=== PATIENT | male | born 1975 | race Caucasian/White ===

== ENCOUNTER 2017-07-13 14:17 | Emergency (ER) | payer MEDICAID, SELFPAY ==
[2017-07-13 14:18] VITALS: BP 159/93; PULSE 102; RESP 14; TEMP 36.4; O2SAT 99; BMI 40.9
[2017-07-13 14:52] LABS: Bedside Glucose 148 mg/dL (70-110)
--- NOTE | 2017-07-13 14:52 | ED.VISSUMM ---
- ER Visit Summary Date of Service: 07/13/17 Chief Complaint: Rash anterior left and anterior right leg History of Present Illness: The patient is a [address] diabetes and hypertension presents because of rash anterior left and right leg. Onset yesterday. He has been scratching his legs. He denies fever, chills or night sweats. He does not check his blood sugars on a regular basis. His last A1c was 7.1. He denies any polyuria, polydipsia or polyphagia. He denies blurred vision. He has no other complaints please read written note. Physical Examination: Unremarkable blood pressure 159/93. Temperature is 97.5. HEENT exam is unremarkable. Insert cardiac pulmonary exam patient has distal pulses i.e. DP and PT which are palpable bilaterally. There is areas of excoriation with mild erythema anterior distal right leg. There is excoriation anterior left leg; however, there is erythema, warmth, and induration. There is no lymphangitis nor is there any popliteal or inguinal lymphadenopathy. Test Results: B GT is 148 Emergency Department Course and Treatment: Blood sugar and treat with doxycycline since he may be managed as an outpatient. Treatment Plan: Option for doxycycline and [facility] at [facility] Disposition: Discharged to home with appropriate home-going directions and prescription for doxycycline Impression: Cellulitis anterior left leg Areas of excoriation with erythema anterior right leg Hyperglycemia and type II diabetic This note was generated with [employer] dictation software. It may contain incorrect words, spelling, and punctuation that were not noted in review of the chart prior to signing ED Disposition - Plan for ED Patient: Disposition: Home or Assisted Living Chief Complaint: Cellulitis Instructions: Discharge Instructions for Cellulitis Prescriptions: Doxycycline [Vibramycin] 100 mg PO BID #14 cap [facility] 2 Days for wound check
--- NOTE | 2017-07-13 14:57 | ED.DCSUM_ITS ---
- ER Visit Summary Date of Service: 07/13/17 Chief Complaint: Rash anterior left and anterior right leg History of Present Illness: The patient is a [address] diabetes and hypertension presents because of rash anterior left and right leg. Onset yesterday. He has been scratching his legs. He denies fever, chills or night sweats. He does not check his blood sugars on a regular basis. His last A1c was 7.1. He denies any polyuria, polydipsia or polyphagia. He denies blurred vision. He has no other complaints please read written note. Physical Examination: Unremarkable blood pressure 159/93. Temperature is 97.5. HEENT exam is unremarkable. Insert cardiac pulmonary exam patient has distal pulses i.e. DP and PT which are palpable bilaterally. There is areas of excoriation with mild erythema anterior distal right leg. There is excoriation anterior left leg; however, there is erythema, warmth, and induration. There is no lymphangitis nor is there any popliteal or inguinal lymphadenopathy. Test Results: B GT is 148 Emergency Department Course and Treatment: Blood sugar and treat with doxycycline since he may be managed as an outpatient. Treatment Plan: [facility] for [facility]xycycline [facility] Disposition: Discharged to home with appropriate home-going directions and prescription for doxycycline Impression: Cellulitis anterior left leg Areas of excoriation with erythema anterior right leg Hyperglycemia and type II diabetic This note was generated with [employer] dictation software. It may contain incorrect words, spelling, and punctuation that were not noted in review of the chart prior to signing ED Disposition - Plan for ED Patient: Disposition: Home or Assisted Living Chief Complaint: Cellulitis Instructions: Discharge Instructions for Cellulitis Prescriptions: Doxycycline [Vibramycin] 100 mg PO BID #14 cap [facility] - 2 Days for wound check
[2017-07-13] MEDS: Doxycycline 100 MG CAPSULE PO (15:07)
[2017-07-13 15:08] VITALS: BP 121/89
== END 2017-07-13 15:08 | disposition home or self-care (01) ==
PROVIDERS: Emergency Provider Emergency Medicine
DX: S80.812A Abrasion, left lower leg, initial encounter (principal); L03.116 Cellulitis of left lower limb; S80.811A Abrasion, right lower leg, initial encounter; X58.XXXA Exposure to other specified factors, initial encounter; Y93.9 Activity, unspecified; Y92.9 Unspecified place or not applicable; E11.65 Type 2 diabetes mellitus with hyperglycemia; I10 Essential (primary) hypertension; E66.9 Obesity, unspecified; Z79.82 Long term (current) use of aspirin; Z79.84 Long term (current) use of oral hypoglycemic drugs; Z79.899 Other long term (current) drug therapy; Z72.0 Tobacco use
CPT/HCPCS: 82962; 99282

== ENCOUNTER → 2018-08-31 10:28 | Outpatient (CLI) | payer MEDICAID, SELFPAY ==
--- NOTE | 2018-08-31 10:50 | RAD_ITS ---
STUDY: X-RAY - CERVICAL SPINE REASON FOR EXAM: Male, 42 years old. Neck pain and headache TECHNIQUE: 7 view(s) of the cervical spine were obtained. COMPARISON: None FINDINGS: Normal anterior atlantoaxial articulation. Normal odontoid process. Normal cervical lordosis. Normal vertebral bodies and endplates. Mild disc space narrowing. There is multi-level osseous foraminal stenosis. The soft tissue structures are unremarkable. No evidence of instability on the flexion or extension views. RAD/Cerv Spine 4 or 5 Views IMPRESSION: Degenerative changes, no acute findings Electronically Signed: Irving Worley MD at 12:22 EDT , Service support ,
== END ==
DX: M54.2 Cervicalgia (principal)
CPT/HCPCS: 72050

== ENCOUNTER 2020-05-13 15:21 | Emergency (ER) | payer MEDICAID, SELFPAY ==
[2020-05-13 15:22] VITALS: BP 121/80; PULSE 78; RESP 16; TEMP 36.5; O2SAT 99; BMI 34.8
--- NOTE | 2020-05-13 15:43 | MRI_ITS ---
STUDY: MRI LUMBAR SPINE WITHOUT CONTRAST REASON FOR EXAM: Male, 44 years old. pain low back and left leg, numbness TECHNIQUE: Standardized fat and water weighted pulse sequences were obtained in the sagittal and axial planes. COMPARISON: None FINDINGS: T12-L1: Normal endplates. Normal disc height, hydration and morphology. Normal bilateral facet joints. Normal central canal and bilateral lateral recesses. Normal bilateral intervertebral neural foramina. Normal lumbar lordosis. There is no substantial scoliosis. Normal conus medullaris that terminates at the L1 level. L1-2: Normal endplates. Normal disc height, hydration and morphology. Normal bilateral facet joints. Normal central canal and bilateral lateral recesses. Normal bilateral intervertebral neural foramina. L2-3: Normal endplates. Normal disc height, hydration and morphology. Hypertrophic bilateral facet joints. Normal central canal and bilateral lateral recesses. Normal bilateral intervertebral neural foramina. L3-4: Normal endplates. Normal disc height, hydration and morphology. Hypertrophic bilateral facet joints. Normal central canal and bilateral lateral recesses. Normal bilateral intervertebral neural foramina. L4-5: Normal endplates. Normal disc height, hydration and morphology. Fluid-filled hypertrophic bilateral facet joints. Normal central canal and bilateral lateral recesses. Moderate narrowing bilateral intervertebral neural foramina. L5-S1: Mild annular bulge.. Normal disc height, hydration and morphology. Normal bilateral facet joints. Normal central canal and bilateral lateral recesses. Moderate narrowing bilateral intervertebral neural foramina. Normal visualized sacral ala. Normal visualized paraspinous soft tissue structures. MRI/Spine Lumbar (Routine) IMPRESSION: Moderate narrowing of the inferior neural foramina bilaterally at L4-5 and L5-S1 as above Electronically Signed: Reji Hanson MD at 18:58 EST , Service support ,
--- NOTE | 2020-05-13 15:44 | ED.VIS.GEN ---
History of Present Illness Chief Complaint: Back Informant: Patient Onset: Today Current Severity: Moderate Maximum Severity: Moderate Narrative: Patient presents with back pain and left leg weakness and numbness. He reports a history of back problems and states he has broken his back and neck 3 times each. Yesterday he was trying to help load a car onto a trailer. He states when he went to bed last evening he had no pain. He got up at 3:00 in the morning to go the bathroom and had some pain in his low back when doing so. When he woke up later this morning he states he felt like his left leg was completely numb and he had difficulty moving it. He states his been laying in bed all day because of this. - Past Medical History (1) H/O heart artery stent Status: Chronic (2) Coronary artery disease Status: Chronic (3) Diabetes Status: Chronic (4) Fibromyalgia Status: Chronic Past Medical History - Allergies and Home Meds Allergies/Adverse Reactions: Allergies No Known Allergies Allergy (Verified 05/13/20 15:22) [facility] - Prior records reviewed: Yes Smoking Status: Current every day smoker Review of Systems General: Denies: Chills, Fever Eyes: Denies: Visual changes - bilaterally ENT: Denies: Bilateral ear pain Cardiovascular: Denies: Chest pain Respiratory: Denies: Dyspnea, Cough Gastrointestinal: Denies: Abdominal pain, Nausea, Vomiting, Diarrhea Musculoskeletal: Reports: Back pain Skin: Denies: Rash Neurological: Reports: Weakness, Numbness Hematologic: Denies: Easy bruising, Easy bleeding Allergy: Denies: Uticaria Physical Exam Vital Signs/Narrative: Vital Signs Temp Pulse Resp BP Pulse Ox 05/13/20 15:22 97.7 F L 78 16 121/80 H 99 Inital Vital Signs reviewed: Yes General: Well nourished, Well developed Head: Normocephalic ENT: Moist mucous membranes Neck: Supple Cardiovascular: Regular rate, Regular rhythm Respiratory: No distress, CTA bilaterally Abdomen: Soft, Nontender Extremities: - - 1+ bilateral patellar reflexes. Patient reports decreased sensation to light touch throughout the left leg. He is able to lift his heel up off the bed. Neurological: Alert, Oriented x3 Psychological: Normal affect Diagnostic/Tx/Re-eval Impressions Lumbar Spine MRI 05/13/20 15:43 IMPRESSION: Moderate narrowing of the inferior neural foramina bilaterally at L4-5 and L5-S1 as above Electronically Signed: Reji Hanson MD at 18:58 EST , Service support , 05/13/20 15:43 MRI Lumbar [Spine Lumbar (Routine)] [MRI] Stat Laboratory Results 05/13/20 05/13/20 15:10 15:10 WBC 12.8 H RBC 5.49 Hgb 16.6 H Hct 51.1 MCV 93.1 MCH 30.2 MCHC 32.5 RDW Std Deviation 46.5 H RDW Coeff of Rita 13.8 Plt Count 292 MPV 10.2 Immature Gran % (Auto) 1.000 H Neut % (Auto) 71.2 H Lymph % (Auto) 19.0 [place] % (Auto) 6.3 Eos % (Auto) 2.0 Baso % (Auto) 0.5 Absolute Neuts (auto) 9.1 H Absolute Lymphs (auto) 2.43 Nucleated RBC % 0 Sodium 140 Potassium 3.9 Chloride 107 Carbon Dioxide 29.0 Anion Gap 4 L BUN 16 Creatinine 1.17 Estim Creat Clear Calc 79.73 Est GFR (MDRD) Af Amer 87 Est GFR (MDRD) Non-Af 72 BUN/Creatinine Ratio 13.7 Glucose 102 Calcium 9.0 - Medical Decision Making Patient was given morphine followed by Dilaudid for pain control. MRI of the lumbar spine was obtained secondary to the patient's reported weakness and decreased sensation the left leg. This revealed some foraminal stenosis but no large disc protrusions. After returning from MRI patient was given p.o. Spencer, Naprosyn, and Flexeril. Nursing staff was able to get the patient up and ambulate him in the emergency room. He will be discharged with prescriptions for the same. ED Disposition - Plan for ED Patient: Disposition: Home or Assisted Living Diagnosis: Back pain Instructions: ED Back Sprain/Strain Prescriptions: cycloBENZAPRine HCl [Flexeril] 10 mg PO TID PRN #20 tab PRN Reason: Muscle Spasm Transmission Status: Sent to [facility] Naproxen [Naprosyn] 500 mg PO BID #14 tab Transmission Status: Sent to [facility] Hydrocodone Bitart/Apap 5-325 [Spencer 5MG-325MG] 1 tab PO Q6H PRN PRN 3 Days #10 tab PRN Reason: Pain Transmission Status: Received by [facility]Primary Care Provider[facility] -
[2020-05-13] MEDS: Morphine 4 MG/ML Syringe IV (15:48)
[2020-05-13] MEDS: Ondansetron 4 MG/2 ML Vial IV (15:49)
[2020-05-13 16:00] LABS: Absolute Lymphocyte Count 2.43 X10^3/uL (0.83-4.51); Absolute Neutrophil Count 9.1 X10^3/uL (2.0-7.7); Basophil# 0.06 X10^3/uL; Basophil% 0.5 % (0-1); Eosinophil# 0.26 X10^3/uL; Hematocrit 51.1 % (40-54); Hemoglobin 16.6 g/dL (13.0-16.5); Lymphocyte # 2.43 X10^3/ul (4.0); Mean Corp Hgb Conc 32.5 g/dL (32-36); Mean Corpuscular Hgb 30.2 pg (27.0-32.0); Mean Corpuscular Volume 93.1 fL (80-94); Mean Platelet Vol. 10.2 fl (6.2-12.0); Monocyte# 0.81 X10^3/uL; Monocyte% 6.3 % (0-10); NRBC Flagged by Analyzer 0 % (0-5); Neutrophil # 9.12 X10^3/uL (2.7-7.7); Neutrophil % 71.2 % (47-70); Platelet Count 292 K/mm3 (150-450); RBC Distribution Width CV 13.8 % (11.6-14.6); RBC Distribution Width SD 46.5 fl (35.1-43.9); Red Blood Count 5.49 M/mm3 (4.6-6.2); White Blood Count 12.8 K/mm3 (4.4-11.0)
[2020-05-13 16:07] LABS: Anion Gap 4 (5-15); BUN 16 mg/dL (7-18); BUN/Creat Ratio 13.7 RATIO (10-20); Chloride 107 mmol/L (98-107); Creatinine, Serum 1.17 mg/dL (0.70-1.30); EST Glomerular Filtration Rate 72 mL/min (>60); Est Glom Filt Rate - Afr Amer 87 mL/min (>60); Estimated Creatinine Clearance 79.73 ml/min; Glucose 102 mg/dL (74-106); Potassium 3.9 mmol/L (3.5-5.1); Sodium Level 140 mmol/L (136-145)
--- NOTE | 2020-05-13 16:37 | ED.RN ---
mri checklist gone over and signed
[2020-05-13 17:21] VITALS: BP 101/59; PULSE 69; RESP 95; O2SAT 95
[2020-05-13 18:05] VITALS: BP 144/86; PULSE 86; RESP 16; O2SAT 90
[2020-05-13] MEDS: HYDROmorphone 0.5 MG/0.5 ML SYRINGE IV (18:22)
[2020-05-13] MEDS: HYDROcodone Bitartrate/Apap 5/325 Tablet PO (19:32)
[2020-05-13] MEDS: Naproxen 500 MG Tablet PO (19:32)
[2020-05-13] MEDS: cycloBENZAPRine HCl 10 MG Tablet PO (19:33)
[2020-05-13 20:00] VITALS: RESP 17
--- NOTE | 2020-05-13 20:12 | ED.RN ---
Pt walked around the hallway. c/o pain with walking md aware
== END 2020-05-13 20:53 | disposition home or self-care (01) ==
PROVIDERS: Emergency Provider Emergency Medicine
DX: M54.5 Low back pain (principal); I25.10 Atherosclerotic heart disease of native coronary artery without angina pectoris; F17.200 Nicotine dependence, unspecified, uncomplicated; Z95.5 Presence of coronary angioplasty implant and graft
CPT/HCPCS: 72148; 80048; 85025; 96374; 96375; 99285; A4216; J2405

== ENCOUNTER 2021-10-26 13:20 | Observation (INO) | payer MEDICAID, SELFPAY ==
[2021-10-26 13:21] VITALS: BP 133/112; PULSE 122; RESP 18; TEMP 36.2; O2SAT 98; BMI 35.4
--- NOTE | 2021-10-26 13:32 | CT_ITS ---
STUDY: CT ABDOMEN AND PELVIS WITHOUT CONTRAST REASON FOR EXAM: Male, 45 years old. Pain RADIATION DOSAGE (If Supplied By Facility): CTDIvol = ( 17.74 ) mGy, DLP = ( 970.58 ) mGycm TECHNIQUE: Transaxial images were obtained from the dome of the diaphragm to the symphysis pubis without oral contrast, and without intravenous contrast. Sagittal and coronal images were reconstructed. Individualized dose optimization techniques were used for this CT. COMPARISON: None. FINDINGS: The visualized lung bases are unremarkable. The visualized portions of the heart are within normal limits. Normal liver. There is a solitary gallstone. Normal spleen. Normal pancreas. There is symmetric enlargement of the adrenal glands suggesting adrenal hyperplasia. Normal right kidney. Normal left kidney. Normal visualized stomach. Normal small intestine. Normal colon. The appendix is visualized and appears normal. Normal abdominal aorta. Normal inferior vena cava. Normal retroperitoneum. Normal urinary bladder. There is a small umbilical hernia containing fat. Normal osseous structures. CT/Abdomen/Pelvis without Cont IMPRESSION: Cholelithiasis. Electronically Signed: Junior Morrell MD at 15:30 EDT ,
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
[2021-10-26] MEDS: morphine 10 MG/ML Syringe IV (14:15)
[2021-10-26] MEDS: Ondansetron 4 MG/2 ML Vial IV (14:15)
[2021-10-26 14:25] LABS: AST(SGOT) 17 U/L (15-37); Alanine Aminotransfer ALT/SGPT 27 U/L (16-61); Alkaline Phosphatase 111 U/L (45-117); Anion Gap 6 (5-15); BUN 15 mg/dL (7-18); BUN/Creat Ratio 13.4 RATIO (10-20); Calcium,Total 9.2 mg/dL (8.5-10.1); Chloride 108 mmol/L (98-107); Creatinine, Serum 1.12 mg/dL (0.70-1.30); EST Glomerular Filtration Rate 75 mL/min (>60); Est Glom Filt Rate - Afr Amer 90 mL/min (>60); Estimated Creatinine Clearance 82.41 ml/min; Globulin 4.2 g/dL (2.2-4.2); Glucose 114 mg/dL (74-106); Potassium 3.7 mmol/L (3.5-5.1); Protein, Total 8.2 g/dL (6.4-8.2); Sodium Level 140 mmol/L (136-145)
[2021-10-26 14:39] LABS: Absolute Lymphocyte Count 1.89 X10^3/uL (0.83-4.51); Absolute Neutrophil Count 8.5 X10^3/uL (2.0-7.7); Basophil# 0.05 X10^3/uL; Basophil% 0.4 % (0-1); Eosinophil# 0.25 X10^3/uL; Eosinophils% 2.1 % (0-5); Hematocrit 45.2 % (40-54); Lymphocyte # 1.89 X10^3/ul (0.83-4.51); Lymphocyte % 16.2 % (19-41); Mean Corp Hgb Conc 33.2 g/dL (32-36); Mean Corpuscular Hgb 29.9 pg (27.0-32.0); Mean Corpuscular Volume 90.2 fL (80-94); Mean Platelet Vol. 10.3 fl (6.2-12.0); Monocyte# 0.84 X10^3/uL; Monocyte% 7.2 % (0-10); NRBC Flagged by Analyzer 0 % (0-5); Neutrophil # 8.53 X10^3/uL (2.7-7.7); Neutrophil % 73.2 % (47-70); Platelet Count 249 K/mm3 (150-450); RBC Distribution Width CV 14.7 % (11.6-14.6); RBC Distribution Width SD 48.4 fl (35.1-43.9); Red Blood Count 5.01 M/mm3 (4.6-6.2); White Blood Count 11.7 K/mm3 (4.4-11.0)
[2021-10-26 14:54] VITALS: BP 142/120; PULSE 107; RESP 20; O2SAT 93
[2021-10-26] MEDS: 0.9% Normal Saline 1,000 ML 999 ML IV (15:23)
[2021-10-26] MEDS: HYDROmorphone 1 MG/ML Syringe IV (15:45)
[2021-10-26] MEDS: Ketorolac 30 MG/ML Syringe IV (15:45)
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
[2021-10-26 17:18] LABS: Bacteria 0 SEEN /hpf (None Seen); Mucous, Urine 0 SEEN /hpf (<or=2+); Red Blood Cells-Urine 0 SEEN /hpf (0-5); Squamous Epithelial Cells - UA 0 SEEN /hpf (0-5); White Blood Cells 0 SEEN /hpf (0-5)
[2021-10-26 17:19] LABS: Color, Urine Yellow (Yellow); Glucose, Dipstick Normal (Normal); Ketone-Dipstick 5 mg/dl (Negative); Leukocyte Esterase-Dipstick 25 /ul (Negative); Nitrite-Dipstick Negative (Negative); Occult Blood-Urine Negative /ul (Negative); Protein-Dipstick 15 mg/dl (Negative); Specific Gravity, Urine 1.025 (1.002-1.030); Urine Bilirubin Dipstick Negative (Negative); Urine Clarity Clear (Clear); Urine Urobilinogen 1 mg/dl (Normal)
[2021-10-26 17:33] VITALS: BP 124/76; PULSE 82; RESP 16; TEMP 36.2; O2SAT 96
[2021-10-26 17:44] VITALS: BMI 35.4
[2021-10-26 17:56] VITALS: BP 130/83; PULSE 74; RESP 18; TEMP 36.4; O2SAT 93
[2021-10-26] MEDS: oxyCODONE 5 MG Tablet 10 MG PO ×2 (18:26→22:39)
[2021-10-26] MEDS: predniSONE 20 MG Tablet 60 MG PO (18:26)
[2021-10-26 22:32] VITALS: BP 156/99; PULSE 80; RESP 18; TEMP 36.8; O2SAT 94
[2021-10-26] MEDS: Acetaminophen 500 MG Tablet 1000 MG PO (22:39)
[2021-10-26] MEDS: 0.9% Saline Lock 10 ML Syringe IV (22:42)
[2021-10-27] MEDS: oxyCODONE 5 MG Tablet 10 MG PO ×4 (04:48→20:57)
[2021-10-27 04:49] VITALS: BP 140/98; PULSE 88; RESP 18; TEMP 36.6; O2SAT 95
[2021-10-27] MEDS: Acetaminophen 500 MG Tablet 1000 MG PO ×3 (06:30→20:57)
[2021-10-27 06:35] LABS: Bedside Glucose 162 mg/dL (74-106)
--- NOTE | 2021-10-27 07:08 | PN.HOSP_ITS ---
Subjective Subjective Still having significant pain in his back as well as down his left leg. Objective Data Objective Data Vital Signs: Vital Signs Temp Pulse Resp BP Pulse Ox 36.6 C 88 18 140/98 H 95 10/27/21 04:49 10/27/21 04:49 10/27/21 04:49 10/27/21 04:49 10/27/21 04:49 Oxygen Delivery Method Room Air Weight: 108.862 kg Body Mass Index (BMI) 35.4 Intake & Output: Intake and Output for Last 24 Hours 10/25/21 10/26/21 10/27/21 23:59 23:59 23:59 Intake Total 1540 / 1540 200 / 200 Balance 1540 / 1540 200 / 200 Lab / Micro Data Result Diagrams: 10/26/21 14:25 10/26/21 13:54 Labs: Laboratory Results - last 24 hr 10/26/21 13:54: Sodium 140, Potassium 3.7, Chloride 108 H, Carbon Dioxide 26.0, Anion Gap 6, BUN 15, Creatinine 1.12, Estim Creat Clear Calc 82.41, Est GFR (MDRD) Af Amer 90, Est GFR (MDRD) Non-Af 75, BUN/Creatinine Ratio 13.4, Glucose 114 H, Calcium 9.2, Total Bilirubin 0.50, AST 17, ALT 27, Alkaline Phosphatase 111, Total Protein 8.2, Albumin 4.0, Globulin 4.2, Albumin/Globulin Ratio 1.0 10/26/21 14:25: WBC 11.7 H, RBC 5.01, Hgb 15.0, Hct 45.2, MCV 90.2, MCH 29.9, MCHC 33.2, RDW Std Deviation 48.4 H, RDW Coeff of Rita 14.7 H, Plt Count 249, MPV 10.3, Immature Gran % (Auto) 0.900, Neut % (Auto) 73.2 H, Lymph % (Auto) 16.2 L, [place] % (Auto) 7.2, Eos % (Auto) 2.1, Baso % (Auto) 0.4, Absolute Neuts (auto) 8.5 H, Absolute Lymphs (auto) 1.89, Nucleated RBC % 0 10/26/21 17:10: Urine Color Yellow, Urine Clarity Clear, Urine pH 6.0, Ur Specific [place] 1.025, Urine Protein 15 H, Urine Glucose (UA) Normal, Urine Ketones 5 H, Urine Occult Blood Negative, Urine Nitrite Negative, Urine Bilirubin Negative, Urine Urobilinogen 1 H, Ur Leukocyte Esterase 25 H, Urine RBC 0 SEEN, Urine WBC 0 SEEN, Ur Squamous Epith Cells 0 SEEN, Urine Bacteria 0 SEEN, Urine Mucus 0 SEEN 10/27/21 06:27: POC Glucose 162 H Radiography Diagnostic Testing: Radiology Impression Abdomen/Pelvis CT 10/26/21 13:32 IMPRESSION: Cholelithiasis. Electronically Signed: Junior Morrell MD at 15:30 EDT , Physical Exam Const alert and no apparent distress Constitutional Narrative: Appears much more comfortable Neuro Neuro Narrative: Inability to dorsiflex his toes on his left foot. Diminished sensation of the left lower extremity. Sensorium / Orientation: awake and alert Psych Mood & Affect: anxious Assessment & Plan Assessment/Plan (1) Acute radicular low back pain: PLAN: 1. radicular back pain * Left-sided * No saddle anesthesia * Patient has what appears to be some spinal stenosis based on MRI from April 2020 * Etiology would include herniated disc versus spinal stenosis less likely would be epidural abscess. Patient is not an IV drug user and was feeling well prior to this episode. * Pain control plan: Pain control with scheduled 1000 mg of acetaminophen 3 times daily, as needed oxycodone and hydromorphone for breakthrough, as needed ketorolac. I did review the patient's [place]AR[place] and and has not received any controlled substances since March. * Additional medication: Because of the concern for nerve compression, will initiate prednisone 60 mg daily. * Will need to evaluate this further with an MRI. I do not feel the patient would sit for an MRI at this time given his profound discomfort. Patient barely tolerated getting a CAT scan of his abdomen pelvis. Hopefully we get him calm down enough to be able to sit through an MRI on the . Clinically I do not feel the patient has cauda equina at this time. * 10/27: * MRI L spine: Elongated left L4-L5 posterior caudal disc extrusion with suspicious disc sequestration. This is causing severe stenosis of the left lateral recess and displacement of the left L5 nerve root sleeve. This is a new finding when compared to 05/13/2020. * Discussed with Dr. Macedo who will see the patient in consultation. 2. Diabetes mellitus type 2 * Sliding scale insulin for now 3. CAD * Per history * Stable 4. VTE prophylaxis: Not indicated at this time given current observation status. Charges/Coding Visit Charges OBSV E&M: 73342 Subsequent observation care L2
[2021-10-27 07:30] VITALS: BP 156/75; PULSE 89; RESP 18; TEMP 37; O2SAT 95
[2021-10-27] MEDS: HYDROmorphone 1 MG/ML Syringe IV ×3 (07:52→23:47)
[2021-10-27] MEDS: 0.9% Saline Lock 10 ML Syringe IV ×3 (07:52→23:47)
[2021-10-27] MEDS: predniSONE 20 MG Tablet 60 MG PO (07:52)
--- NOTE | 2021-10-27 09:00 | MRI_ITS ---
STUDY: MRI LUMBAR SPINE WITHOUT CONTRAST REASON FOR EXAM: Male, 45 years old. Left leg radicular pain. TECHNIQUE: Standardized fat and water weighted pulse sequences were obtained in the sagittal and axial planes. COMPARISON: MRI lumbar spine without contrast 05/13/2020. FINDINGS: T11-T12 and T12-L1: (Sagittal only). Normal endplates. Normal disc height, hydration and morphology. No ventral extradural defects. Normal central canal and bilateral intervertebral neural foramina. Normal lumbar lordosis. There is no substantial scoliosis. Normal conus medullaris that terminates at the upper L1 vertebral body level. L1-2: Normal endplates. Normal disc height, hydration and morphology. Normal bilateral facet joints. Normal central canal and bilateral lateral recesses. Normal bilateral intervertebral neural foramina. L2-3: Normal endplates. Normal disc height, hydration and morphology. Normal bilateral facet joints. Normal central canal and bilateral lateral recesses. Normal bilateral intervertebral neural foramina. L3-4: Normal endplates. Normal disc height, hydration and morphology. Normal bilateral facet joints. Normal central canal and bilateral lateral recesses. Normal bilateral intervertebral neural foramina. L4-5: Normal endplates. Mild disc space height narrowing. Elongated left posterior caudal disc extrusion with suspicious disc sequestration causing severe stenosis of the left lateral recess and displacement of the left L5 nerve root sleeve. Normal facet joints. Normal central canal and right lateral recess. Normal bilateral intervertebral neural foramina. L5-S1: Normal endplates. Mild disc space height narrowing. Mild right degenerative facet arthropathy. Normal left facet joint. Normal central canal and bilateral lateral recesses. Moderate stenosis of the right intervertebral neural foramen with suspicious impingement of the right L5 nerve (series 2, image 11; series 3, image 11). Moderate stenosis of the left intervertebral neural foramina without impingement of the left L5 nerve. Normal central canal and bilateral lateral recesses. Normal visualized sacral ala. Normal visualized paraspinous soft tissue structures. MRI/Spine Lumbar (Routine) IMPRESSION: 1. Elongated left L4-L5 posterior caudal disc extrusion with suspicious disc sequestration. This is causing severe stenosis of the left lateral recess and displacement of the left L5 nerve root sleeve. This is a new finding when compared to 05/13/2020. 2. Moderate stenosis of the right L5-S1 intervertebral neural foramen with suspicious impingement of the right L5 nerve due to bone spurs (series 2, image 11; series 3, image 11) and moderate stenosis of the left L5-S1 intervertebral neural foramen but no impingement of the left L5 nerve.. This level is unchanged. 3. No other additional findings or changes. Electronically Signed: Milan Martinez MD at 11:59 EDT ,
[2021-10-27 11:46] LABS: Bedside Glucose 137 mg/dL (74-106)
[2021-10-27] MEDS: Ketorolac 30 MG/ML Syringe IV (14:36)
[2021-10-27 16:18] VITALS: BP 135/92; PULSE 69; RESP 18; TEMP 36.8; O2SAT 98
[2021-10-27 17:01] LABS: Bedside Glucose 157 mg/dL (74-106)
--- NOTE | 2021-10-27 17:10 | CONS.ORTHO ---
HPI Consult Data Date of Consult: 10/27/21 HPI Narrative Reason for Consultation: Left lower extremity pain and paresthesias HPI Narrative: DANIELLE PATEL, is a 45 M who presents with acute pain and paresthesias in the left lower extremity. He states the symptoms began about a week ago and were insidious in onset. He denies any history of back injuries or back surgeries. He describes constant pain in the left gluteal region radiating to the left posterior thigh, calf, and foot. He also describes decreased sensation globally below the knee including the foot. He has weakness in left ankle dorsiflexion and left EHL function. He is accompanied by his who contributed to the medical history. He has not had any recent back injections. He denies any other acute numbness tingling weakness or changes in bowel or bladder function FORMERLY [facility] Medical History Coronary artery disease Diabetes Fibromyalgia Allergy/AdvReac Type Severity Reaction Status Date / Time No Known Allergies Allergy Verified 10/26/21 13:22 Surgical History H/O heart artery stent History of facial surgery Social History (Updated 10/26/21 @ 16:[address] Richardson Denny, DO) Smoking Status: Heavy Smoker (>10/day) alcohol intake: current alcohol intake frequency: 3 or more drinks per day substance use type: marijuana Vital Signs Vital Signs Vital Signs: 10/26/21 17:33 10/26/21 17:56 10/26/21 22:32 Temperature 97.2 F L 97.6 F L 98.2 F Temperature Source Oral Oral Oral Pulse Rate 82 74 80 Pulse Strength Respiratory Rate 16 18 18 Respiratory Effort Respiratory Depth Respiratory Pattern Blood Pressure 124/76 H 130/83 H 156/99 H Blood Pressure Mean 92 98 118 Blood Pressure Source Monitor Blood Pressure Position Supine Blood Pressure Location Left Arm Pulse Ox 96 93 94 Oxygen Delivery Method Room Air Room Air Room Air 10/26/21 22:52 10/27/21 04:49 10/27/21 07:30 Temperature 97.9 F 98.6 F Temperature Source Oral Oral Pulse Rate 88 89 Pulse Strength Respiratory Rate 18 18 Respiratory Effort Normal Respiratory Depth Normal Respiratory Pattern Normal Blood Pressure 140/98 H 156/75 H Blood Pressure Mean 112 102 Blood Pressure Source Monitor Blood Pressure Position Semi-Fowlers Blood Pressure Location Left Arm Pulse Ox 95 95 Oxygen Delivery Method Room Air Room Air Room Air 10/27/21 08:00 10/27/21 10:00 10/27/21 16:18 Temperature 98.3 F Temperature Source Oral Pulse Rate 69 Pulse Strength Normal (2+) Respiratory Rate 18 Respiratory Effort Respiratory Depth Respiratory Pattern Blood Pressure 135/92 H Blood Pressure Mean 106 Blood Pressure Source Monitor Blood Pressure Position Semi-Fowlers Blood Pressure Location Left Arm Pulse Ox 98 Oxygen Delivery Method Room Air Room Air Weight Weight: 240 lb Body Mass Index (BMI) 35.4 Physical Exam Const alert, oriented x3 and no apparent distress Constitutional Narrative: Discomfort with movement General Appearance: cooperative and comfortable HEENT normocephalic and head/scalp atraumatic Eyes EOMs intact bilaterally and conjunctivae normal Neck full ROM General: normal visual inspection Chest inspection of chest normal Resp normal respiratory effort and normal air movement Effort and Inspection: able to speak in complete sentences Cardio regular rate and peripheral pulses 2+ throughout GI soft to palpation, non-tender and non-distended Back/Spine no thoracic nor lumbar tenderness Cervical Spine: cervical ROM normal Thoracic Spine / Upper Back: normal to inspection Lumbar Spine / Lower Back: normal to inspection Extremity normal to inspection, full ROM, normal capillary refill, no clubbing, cyanosis or edema and no calf tenderness Skin no rashes or lesions noted General Skin Exam: no breakdown Neuro oriented x3, CN's II-XII intact bilaterally, moves all extremities and deep tendon reflexes 2+ bilaterally Neuro Narrative: The patient has decreased sensation in the left lower extremity below the knee globally, with sensitivity to the sole of the left foot. 3 out of 5 strength in left ankle dorsiflexion and left EHL function. 4 out of 5 strength in left ankle plantar flexion. No upper motor neuron signs or clonus. No other focal motor or sensory deficits of the extremities Motor Exam: muscle tone normal throughout Lab / Micro Data Result Diagrams: 10/26/21 14:25 10/26/21 13:54 Labs: Laboratory Results - last 24 hr 10/26/21 17:10: Urine Color Yellow, Urine Clarity Clear, Urine pH 6.0, Ur Specific [place] 1.025, Urine Protein 15 H, Urine Glucose (UA) Normal, Urine Ketones 5 H, Urine Occult Blood Negative, Urine Nitrite Negative, Urine Bilirubin Negative, Urine Urobilinogen 1 H, Ur Leukocyte Esterase 25 H, Urine RBC 0 SEEN, Urine WBC 0 SEEN, Ur Squamous Epith Cells 0 SEEN, Urine Bacteria 0 SEEN, Urine Mucus 0 SEEN 10/27/21 06:27: POC Glucose 162 H 10/27/21 11:37: POC Glucose 137 H 10/27/21 16:58: POC Glucose 157 H Radiology Impression Lumbar Spine MRI 10/27/21 09:00 IMPRESSION: 1. Elongated left L4-L5 posterior caudal disc extrusion with suspicious disc sequestration. This is causing severe stenosis of the left lateral recess and displacement of the left L5 nerve root sleeve. This is a new finding when compared to 05/13/2020. 2. Moderate stenosis of the right L5-S1 intervertebral neural foramen with suspicious impingement of the right L5 nerve due to bone spurs (series 2, image 11; series 3, image 11) and moderate stenosis of the left L5-S1 intervertebral neural foramen but no impingement of the left L5 nerve.. This level is unchanged. 3. No other additional findings or changes. Electronically Signed: Milan Martinez MD at 11:59 EDT , Assessment & Plan Assessment/Plan (1) Acute radicular low back pain: PLAN: I had a lengthy discussion with the patient. I reviewed his imaging with him. Lumbar MRI dated 10/27/2021 shows left L4-5 extruded disc herniation. After discussing the risk benefits and alternatives and answering all of his questions I recommend a left L4-5 and left L5-S1 transforaminal epidural steroid injection. He agrees to proceed. We will get him scheduled for this injection. If he gets significant relief with the injection, I am okay with him being discharged home to follow-up in clinic to discuss further treatment options. In the meantime I recommend continued pain control with IV steroids and gabapentin and activity as tolerated. He understands and agrees with the treatment plan.
[2021-10-27 17:38] VITALS: RESP 18
[2021-10-27] MEDS: Gabapentin 300 MG Capsule PO (19:42)
[2021-10-27 19:44] VITALS: BP 145/86; PULSE 81; RESP 16; TEMP 36.7; O2SAT 96
[2021-10-27] MEDS: Thiamine Hydrochloride 100 MG Tablet PO (21:51)
[2021-10-27] MEDS: LORazepam 0.5 MG Tablet PO (21:51)
[2021-10-27] MEDS: Folic Acid 1 MG Tablet PO (21:51)
[2021-10-27 22:56] LABS: Bedside Glucose 135 mg/dL (74-106)
[2021-10-28 01:19] VITALS: BP 145/92; PULSE 67; RESP 18; TEMP 36.9; O2SAT 98
[2021-10-28] MEDS: oxyCODONE 5 MG Tablet 10 MG PO ×2 (01:22→11:50)
--- NOTE | 2021-10-28 05:00 | EKG12_ITS ---
Test Reason : AM EKG Blood Pressure : / mmHG Vent. Rate : 064 BPM Atrial Rate : 064 BPM P-R Int : 138 ms QRS Dur : 096 ms QT Int : 400 ms P-R-T Axes : 060 071 053 degrees QTc Int : 412 ms Normal sinus rhythm with sinus arrhythmia Normal ECG Confirmed by SUAD YAÑEZ, PATRICK ([id number]), graphics editor FRANNY POWELL ([id number]) on 10/29/2021 10:55:02 AM Referred By: Confirmed By:PATRICK BORJAS MD
[2021-10-28 06:08] VITALS: BP 168/106; PULSE 85; RESP 16; TEMP 36.9; O2SAT 97
[2021-10-28] MEDS: 0.9% Saline Lock 10 ML Syringe IV ×2 (06:12→09:56)
[2021-10-28] MEDS: HYDROmorphone 1 MG/ML Syringe IV ×2 (06:13→09:56)
[2021-10-28] MEDS: Acetaminophen 500 MG Tablet 1000 MG PO (06:14)
[2021-10-28 06:29] LABS: International Normalized Ratio 1.1; Prothrombin Time (Protime)PT. 13.5 SECONDS (11.7-14.9)
[2021-10-28 06:30] LABS: Partial Thromboplast Time 27.1 Seconds (24.1-36.2)
--- NOTE | 2021-10-28 06:38 | RAD_ITS ---
PROCEDURE: Epidural steroid injection. DATE OF EXAMINATION: 10/28/2021 INDICATION: Male, 45 years old. Back pain. FLUOROSCOPY TIME (if supplied): (32 seconds) minutes/seconds. 2 images were obtained. RAD/Lumbar Spine 2 or 3 Views IMPRESSION: Intraoperative imaging provided for epidural steroid injection. Electronically Signed: Giovanni Kelly MD at 13:44 EDT ,
[2021-10-28 06:42] LABS: AST(SGOT) 13 U/L (15-37); Alanine Aminotransfer ALT/SGPT 27 U/L (16-61); Albumin, Serum 3.3 g/dL (3.2-5.0); Alkaline Phosphatase 86 U/L (45-117); Bilirubin, Direct 0.09 mg/dL (0.00-0.30); Protein, Total 7.3 g/dL (6.4-8.2)
[2021-10-28 08:00] LABS: Bedside Glucose 118 mg/dL (74-106)
[2021-10-28 09:52] VITALS: BP 153/89; PULSE 78; RESP 18; TEMP 37; O2SAT 98; BMI 35.4
[2021-10-28 09:54] VITALS: BP 153/89; PULSE 78; RESP 18; TEMP 37; O2SAT 98
--- NOTE | 2021-10-28 10:04 | PN.HOSP_ITS ---
Subjective Subjective Patient seen and examined. He still complains of back pain. He is due for an epidural steroid shot in his back today. Review of systems is otherwise negative. Objective Data Objective Data Vital Signs: Vital Signs Temp Pulse Resp BP Pulse Ox 98.6 F 78 18 153/89 H 98 10/28/21 09:52 10/28/21 09:52 10/28/21 09:52 10/28/21 09:52 10/28/21 09:52 Oxygen Delivery Method Room Air Weight: 240 lb Body Mass Index (BMI) 35.4 Intake & Output: Intake and Output for Last 24 Hours 10/26/21 10/27/21 10/28/21 23:59 23:59 23:59 Intake Total 1540 / 1540 1979 / 1979 Output Total 650 / 650 800 / 800 Balance 1540 / 1540 1330 / 1330 -800 / -800 Lab / Micro Data Result Diagrams: 10/26/21 14:25 10/26/21 13:54 Labs: Laboratory Results - last 24 hr 10/27/21 11:37: POC Glucose 137 H 10/27/21 16:58: POC Glucose 157 H 10/27/21 21:00: POC Glucose 135 H 10/28/21 06:02: PT 13.5, INR 1.1, APTT 27.1 10/28/21 06:02: Total Bilirubin 0.30, Direct Bilirubin 0.09, AST 13 L, ALT 27, Alkaline Phosphatase 86, Total Protein 7.3, Albumin 3.3, Globulin 4.0 10/28/21 07:58: POC Glucose 118 H Radiography Diagnostic Testing: Radiology Impression Lumbar Spine MRI 10/27/21 09:00 IMPRESSION: 1. Elongated left L4-L5 posterior caudal disc extrusion with suspicious disc sequestration. This is causing severe stenosis of the left lateral recess and displacement of the left L5 nerve root sleeve. This is a new finding when compared to 05/13/2020. 2. Moderate stenosis of the right L5-S1 intervertebral neural foramen with suspicious impingement of the right L5 nerve due to bone spurs (series 2, image 11; series 3, image 11) and moderate stenosis of the left L5-S1 intervertebral neural foramen but no impingement of the left L5 nerve.. This level is unchanged. 3. No other additional findings or changes. Electronically Signed: Milan Martinez MD at 11:59 EDT , Physical Exam Const alert and oriented x3 Constitutional Narrative: looks uncomfortable due to pain. Exam Limitations: no limitations HEENT head/scalp atraumatic and moist oral mucous membranes Head and Scalp: normocephalic Eyes PERRL, EOMs intact bilaterally and conjunctivae normal Neck no lymphadenopathy and supple Resp normal respiratory effort, no retractions, no use of accessory muscles and clear to auscultation bilaterally Cardio regular rate, regular rhythm, S1 normal heart sound, S2 normal heart sound and no murmurs GI normal to inspection, nondistended, normoactive bowel sounds, soft to palpation, non-tender and non-distended Extremity normal to inspection Peripheral Pulses: Yes pulses 2+ throughout Skin no rashes or lesions noted Neuro oriented x3, CN's II-XII intact bilaterally and moves all extremities Sensorium / Orientation: awake and alert Psych affect normal Assessment & Plan Assessment/Plan (1) Acute radicular low back pain: PLAN: #Severe back pain due to spinal stenosis with radiculopathy * till complaining of pain * MRI of the lumbar spine showed elongated left L4-5 posterior caudal disc protrusion with suspicious disc sequestration, causing severe stenosis of hte left lateral recess and displacement of the left L5 nerve root sleeve * on steroids nd pain meds * for epidural steroid shot today * orthopedics on board * PT/OT on board * fall precautions * #Type 2 diabetes mellitus * on ISS. Accuchecks ACHS * #CAD: stable. Says he has a history of heart stent. Not on any cardiac meds though. To follow up with PCP on outpatient basis. DVT prophylaxis: SCDs Charges/Coding Visit Charges Inpatient E&M: 83087 Subs Hosp L2
[2021-10-28] MEDS: Triamcinolone Acetonide 40 MG/ML Vial (12:36)
[2021-10-28] MEDS: Sodium Bicarbonate 50 MEQ/50 ML Vial (12:38)
[2021-10-28] MEDS: Lidocaine 1% /Epi 1:100 (20ml) 20 ML Vial (12:39)
--- NOTE | 2021-10-28 12:40 | PCM.OPRPT ---
Problems Associated Problem List Diagnoses (1) Acute radicular low back pain: Report of Operation Date of Procedure: 10/28/21 Pre-Operative Diagnosis: 1. Lumbar stenosis L4-5, with spondylosis 2. Lumbar degenerative disc disease L4-5 3. Lumbar disc herniation L4-5 left Post-Operative Diagnosis: 1. Lumbar stenosis L4-5, with spondylosis 2. Lumbar degenerative disc disease L4-5 3. Lumbar disc herniation L4-5 left Surgery/Procedure Performed:: 1. Left L4-5 transforaminal epidural steroid injection Description of Surgical Findings:: The patient was seen in the preop holding area. Risks and benefits of the procedure were explained to the patient and informed consent was obtained. The patient was transported to the procedure room, positioned prone on the fluoroscopy table. The back was prepped and draped in the usual sterile fashion. Sterile technique was used throughout. Under fluoroscopic guidance in the AP view, vertebral bodies were identified. The following sequence of events was performed independently prior to needle insertion. Using cephalocaudad tilt superior endplates were squared and ipsilateral obliquing was performed. The target point is lateral to the lamina and below the pedicle. At no time did the needle cross the line formed medially by the pedicle. Corresponding skin and subcutaneous tissue needle entry sites were anesthetized with 1% lidocaine. Subsequently a 22-gauge spinal needle with a curved tip was advanced via a subcuticular approach to enter the neuroforamen at L4-5 left. Position was confirmed in AP oblique and lateral views. Omnipaque was injected and positive epidural spread was noted. No intravascular or intrathecal uptake was noted. After negative aspiration, bupivacaine 0.75% 1 mL, and 1 mL of Kenalog 40 mg/mL was injected. The needle was removed. No complications were noted. The patient was transported to the recovery room and monitored until discharge criteria were met. Surgeon: Luis Miguel Macedo Type of Anesthesia: Local Estimated Blood Loss (mL): None Complications None Admit VTE Documentation VTE Present on Admission: No
[2021-10-28 13:03] VITALS: BP 145/96; PULSE 77; RESP 18; TEMP 36.8; O2SAT 98
[2021-10-28] MEDS: Gabapentin 300 MG Capsule PO (13:11)
[2021-10-28 13:21] LABS: Bedside Glucose 123 mg/dL (74-106)
--- NOTE | 2021-10-28 13:24 | PCM.DC.SUM ---
Providers Date of Admission: 10/26/21 Primary Care Physician: [facility] Consultations 10/27/21 12:38 Consult: Orthopedics Routine Consulting Provider: Luis Miguel Macedo Reason for Consult: L5 nerve root compression. Disc herniation. EMERGENT Consult: No MD Notified: Yes Date Notified: 10/27/21 Time Notified: 12:38 Method of Notification: Verbal Reason For Visit: RADICULAR BACK PAIN Diagnosis Discharge Diagnosis (1) Acute radicular low back pain: Status: Acute Code(s): M54.16 - Radiculopathy, lumbar region Medications at Discharge Home Medications acetaminophen 1,000 mg PO Q8 #60 tab 10/28/21 gabapentin 300 mg PO TIDCM #30 cap 10/28/21 oxycodone 5 mg PO Q4H PRN PRN 3 Days #18 tab 10/28/21 Hospital Course Operations None Procedures None Summary of Care Provided Hospital Course: Patient is a 45 y/o male with a PMH as outlined who was admitted with a complaint of lef groin and left leg pain. Said it started when he was carrying a light piece of PIPE. HE HAD NOT BEEN DOING ANY HEAVY LIFTING OR ANY HEAVY ACTIVITIES. CT OF THE ABDOMEN SHOWED NO ACUTE ABDOMINAL PROCESS. MRI OF THE LUMBAR SPINE DONE IN APRIL 2020 HAS SHOWED EVIDENCE OF SOME SPINAL STENOSIS. HE WAS ADMITTED AND MANAGED FOR BACK PAIN WITH RADICULOPATHY WHICH WAS THOUGHT TO BE DUE TO SPINAL STENOSIS. Orthopedics surgery was consulted. 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 He had an epidural steroid shot on 10/28/2021 as recommended by orthopedic surgery. He was discharged home on 10/28/2021, and is to follow up with his PCP and spine surgery. Patient seen and examined prior to discharge. Pain was still present but had improved. He was able to ambulate around after he had a pain shot. Review of systems otherwise negative. Labs and vitals reviewed. Medication reviewed and reconciled. Physical Exam Const alert, oriented x3 and no apparent distress General Appearance: cooperative and comfortable Exam Limitations: no limitations HEENT normocephalic, head/scalp atraumatic and moist oral mucous membranes Eyes PERRL, EOMs intact bilaterally and conjunctivae normal Neck no lymphadenopathy and supple Resp normal respiratory effort, no retractions, no use of accessory muscles and clear to auscultation bilaterally Cardio regular rate, regular rhythm, S1 normal heart sound, S2 normal heart sound and no murmurs GI normal to inspection, nondistended, normoactive bowel sounds, soft to palpation, non-tender, non-distended and hepatosplenomegaly Extremity normal to inspection and full ROM Skin no rashes or lesions noted and no wounds Neuro oriented x3, CN's II-XII intact bilaterally and moves all extremities Sensorium / Orientation: awake and alert Psych affect normal Weight / BMI Weight Weight: 240 lb Body Mass Index (BMI) 35.4 ABG / Lab / Microbiology Data Result Diagrams: 10/26/21 14:25 10/26/21 13:54 Laboratory: Laboratory Results - last 24 hr 10/27/21 16:58: POC Glucose 157 H 10/27/21 21:00: POC Glucose 135 H 10/28/21 06:02: PT 13.5, INR 1.1, APTT 27.1 10/28/21 06:02: Total Bilirubin 0.30, Direct Bilirubin 0.09, AST 13 L, ALT 27, Alkaline Phosphatase 86, Total Protein 7.3, Albumin 3.3, Globulin 4.0 10/28/21 07:58: POC Glucose 118 H 10/28/21 13:10: POC Glucose 123 H D/C Instructions Discharge Diet: Low fat / Low cholesterol Discharge Activity: Return to Normal Activity Weight Bearing Status: Weight bearing as tolerated Call your doctor if you observe: Fever of 101 or Higher, Shortness of breath, Swelling in the ankles and Uncontrolled pain Meaningful Use Info Meaningful Use Diagnoses (Choose all that apply): None applicable Discharge Plan Admission Admit Date/Time: 10/26/21 16:10 Primary Reason for Your Visit: back pain with radiculopathy due to spinal stenosis Attending Provider: Myranda Campos [facility] Providers: Luis Miguel Macedo ; Richardson Denny Instructions Patient Instructions: ED Back Care Tips, ED Back Pain (Acute or Chronic) Discharge Orders/Prescriptions Prescriptions: New acetaminophen 500 mg Tablet 1,000 mg PO Q8 Qty: 60 RF: 1 gabapentin 300 mg Capsule 300 mg PO TIDCM Qty: 30 RF: 0 oxycodone 5 mg Tablet 5 mg PO Q4H PRN PRN (Reason: Pain Score 4-5) 3 Days Qty: 18 RF: 0 Referrals / Follow Up: Luis Miguel Macedo DO [STAFF PHYSICIAN] - [facility] Week [facility] - Within 2 Weeks Disposition Disposition (needs filled in before D/C Order can be placed): Home, Self Care Charges/Coding Visit Charges Inpatient E&M: [id number] Disch Hosp
[2021-10-28 14:27] VITALS: BP 130/80; PULSE 78; RESP 18; TEMP 36.8; O2SAT 98
== END 2021-10-28 14:19 | disposition home or self-care (01) ==
LOC: ED 13:48 → MS3 16:31
PROVIDERS: Anesthesiology; Orthopaedic Surgery; Emergency Provider Emergency Medicine; Visit Provider Student in an Organized Health Care Education/Training Program
PROC: 3E0S3BZ Introduction of Anesthetic Agent into Epidural Space, Percutaneous Approach (ICD-10-PCS; CPT 62322; principal; 2021-10-28 12:25)
DX: M51.16 Intervertebral disc disorders with radiculopathy, lumbar region (principal); E11.9 Type 2 diabetes mellitus without complications; G58.8 Other specified mononeuropathies; I25.10 Atherosclerotic heart disease of native coronary artery without angina pectoris; M48.061 Spinal stenosis, lumbar region without neurogenic claudication; M47.26 Other spondylosis with radiculopathy, lumbar region; M48.07 Spinal stenosis, lumbosacral region; F17.210 Nicotine dependence, cigarettes, uncomplicated; M79.7 Fibromyalgia; Z79.899 Other long term (current) drug therapy; Z79.84 Long term (current) use of oral hypoglycemic drugs; Z79.82 Long term (current) use of aspirin
CPT/HCPCS: 36415; 64483; 72100; 72148; 74176; 80053; 80076; 81001; 82962; 85025; 85610; 85730; 93005; 96361; 96374; 96375; 96376; 99218; 99284; J7030; A4216; G0378; J2405; J3490